=== PATIENT | male | born 1955 | race Caucasian/White ===

== ENCOUNTER → 2017-03-21 | Day surgery (SDC) | payer MEDICARE, OTHER ==
[~2017-03-21] VITALS: Ht 170.2 cm; Wt 0.1 kg
[2017-03-21 11:13] LABS: HCT 46.1 % (42.0-52.0); MCHC 34.7 g/dL (32.0-36.0); MCV 86.5 fL (78.0-100.0); MPV 9.6 fL (6.0-9.5); RBC 5.33 M/uL (4.70-6.00); RDW 13.2 % (11.5-14.0)
[2017-03-21 11:30] LABS: ALBUMIN 4.7 g/dL (3.4-4.8); CREATININE 0.8 mg/dL (0.7-1.2); GLOBULIN (CALCULATION) 2.6 g/dL (2.2-4.2); POTASSIUM 4.7 mmol/L (3.5-5.1); TOTAL PROTEIN 7.3 g/dL (6.4-8.3)
== END | disposition home or self-care (01) ==
LOC: FAS 10:32
PROVIDERS: Surgery
DX: K81.1 Chronic cholecystitis (principal); I10 Essential (primary) hypertension; F32.9 Major depressive disorder, single episode, unspecified; M19.90 Unspecified osteoarthritis, unspecified site; G47.33 Obstructive sleep apnea (adult) (pediatric); Z99.89 Dependence on other enabling machines and devices; Z88.8 Allergy status to other drugs, medicaments and biological substances; Z90.49 Acquired absence of other specified parts of digestive tract; Z98.1 Arthrodesis status; Z96.643 Presence of artificial hip joint, bilateral; Z96.651 Presence of right artificial knee joint; Z85.028 Personal history of other malignant neoplasm of stomach; Z87.891 Personal history of nicotine dependence; Z80.8 Family history of malignant neoplasm of other organs or systems; Z98.84 Bariatric surgery status; Z79.82 Long term (current) use of aspirin; Z79.899 Other long term (current) drug therapy; Z98.890 Other specified postprocedural states
CPT/HCPCS: 36415; 74300; 80053; 88304; J0690; J2704; J3010; Q9962

== ENCOUNTER → 2021-12-30 | Day surgery (SDC) | payer MEDICARE, OTHER ==
[~2021-12-30] VITALS: Ht 170.2 cm; Wt 122.6 kg
[~2021-12-30] MED LIST: ARTHRITIS PAIN150 GM EXT; ASPIRIN EC81 MG PO; CITALOPRAM HBR40 MG PO; MELOXICAM15 MG PO; ONE DAILY COMP1 EACH PO; OXYCODONE-APAP1 TAB PO; TESTOSTERO200 MG/1 M IM; VITAMIN B COMP0.4 MG PO; VITAMIN C500 M5 PO; VITAMIN D310 MCG PO; VITAMIN E45 MG PO; ZOLPIDEM TARTRA10 MG PO
[2021-12-30 09:14] LABS: HCT 56.6 % (42.0-52.0); HGB 19.4 g/dl (13.2-18.0); MCHC 34.3 g/dL (32.0-36.0); MCV 93.2 fL (78.0-100.0); MPV 9.5 fL (6.0-9.5); RBC 6.07 M/uL (4.70-6.00); RDW 13.2 % (11.5-14.0); WBC 7.1 K/uL (4.0-10.5)
[2021-12-30 09:29] LABS: ALBUMIN 4.4 g/dL (3.4-5.0); BILIRUBIN - TOTAL 2.8 mg/dL (0.2-1.0); BUN/CREAT RATIO (CALC) 15.1 RATIO; CREATININE 0.86 mg/dL (0.67-1.17); GLOBULIN (CALCULATION) 3.1 g/dL; POTASSIUM 4.1 mmol/L (3.5-5.1); TOTAL PROTEIN 7.5 g/dL (6.4-8.2)
== END | disposition home or self-care (01) ==
LOC: FAS 08:15
PROVIDERS: Surgery
DX: K58.0 Irritable bowel syndrome with diarrhea (principal); E66.9 Obesity, unspecified; Z86.010 Personal history of colon polyps; Z90.49 Acquired absence of other specified parts of digestive tract; Z87.891 Personal history of nicotine dependence; Z88.8 Allergy status to other drugs, medicaments and biological substances; Z79.82 Long term (current) use of aspirin
CPT/HCPCS: 36415; 80053; J1610; J2250; J2704; J7120